=== PATIENT | female | born 1975 ===

== ENCOUNTER → 2019-03-18 | Outpatient (CLI) | payer SELFPAY ==
[~2019-03-18] MED LIST: ASCO250CH PO; Ativan0.5 MG PO; CITA10S PO; DOC250 PO; FERR325 PO; IBUP800 PO
[2019-03-20 15:06] LABS: HPV 16 Negative (Negative); HPV 18 Negative (Negative); HPV OTHER HR TYPES Negative (Negative)
== END ==
LOC: LAB 17:24 → LAB SHORT 17:24
PROVIDERS: Registered Nurse Community Health
DX: Z12.4 Encounter for screening for malignant neoplasm of cervix (principal)
CPT/HCPCS: 87624; G0123

== ENCOUNTER → 2024-03-08 | Outpatient (CLI) | payer SELFPAY ==
[2024-03-08 15:29] LABS: Candida Group, PCR NOT DETECTED (NOT DETECT); Candida glabrata-krusei, PCR NOT DETECTED (NOT DETECT)
[2024-03-08 15:30] LABS: Bacterial Vaginosis PCR Positive (NEGATIVE)
[2024-03-15 00:55] LABS: HPV HIGH RISK BY TMA Detected; HPV SOURCE Cervical
[2024-03-17 19:11] LABS: HPV GENOTYPE 16 BY TMA Not Detected; HPV GENOTYPE 18/45 BY TMA Not Detected; HPVG SOURCE Cervical
== END | disposition home or self-care (01) ==
LOC: LAB 11:29 → LAB SHORT 11:29
PROVIDERS: Family Medicine
DX: Z12.4 Encounter for screening for malignant neoplasm of cervix (principal)
CPT/HCPCS: 87481; 87624; 87625; 87661; 87801; G0123

== ENCOUNTER → 2024-12-20 | Outpatient (CLI) | payer OTHER ==
[2024-12-28 11:26] LABS: HPV HIGH RISK BY TMA Not Detected; HPV SOURCE Cervical
== END ==
LOC: LAB 19:33 → LAB SHORT 19:33
DX: Z01.419 Encounter for gynecological examination (general) (routine) without abnormal findings (principal)
CPT/HCPCS: 87624; G0123